=== PATIENT | female | born 1970 | race African-American/Black ===

== ENCOUNTER 2020-09-29 22:07 | Emergency (ER) | payer MEDICAID, OTHER ==
[~2020-09-29] VITALS: Ht 165.1 cm; Wt 76.7 kg
[~2020-09-29 22:07] MED LIST: FERR-252 PO
[2020-09-29 22:19] VITALS: BP 150/99
--- NOTE | 2020-09-29 22:19 | NUR ---
to bed ambulatory
--- NOTE | 2020-09-29 23:26 | NUR ---
Dr. Nicholas examining patient.
[2020-09-29] MEDS ORDERED: IBUP-1801 PO (23:58)
[2020-09-30] MEDS ORDERED: DICL20GE TP
[2020-09-30] MEDS ORDERED: KETOROLAC 60 MG/2 ML VIAL IM ONE
--- NOTE | 2020-09-30 00:02 | NUR ---
ALBIN WRAPS PLACED ON BILATERAL KNEES. +CSM
[2020-09-30 00:12] VITALS: BP 150/99
--- NOTE | 2020-09-30 00:13 | NUR ---
Patient discharged with v/s stable. Written and verbal after care instructions given and explained. Patient alert, oriented and verbalized understanding of instructions. Ambulatory with steady gait. All questions addressed prior to discharge. ID band removed. Patient advised to follow up with PMD. Rx of Ibuprofen & Voltaren given. Patient educated on indication of medication including possible reaction and side effects. Opportunity to ask questions provided and answered.
== END 2020-09-30 00:13 | disposition home or self-care (01) ==
LOC: MED 22:07
DX: M25.561 Pain in right knee (principal); M25.562 Pain in left knee; Z79.899 Other long term (current) drug therapy
CPT/HCPCS: 96372; 99283; J1885

== ENCOUNTER 2021-07-26 18:56 | Emergency (ER) | payer MEDICAID ==
[~2021-07-26] VITALS: Ht 165.1 cm; Wt 72.6 kg
[~2021-07-26 18:56] MED LIST changes: +DICL20GE TP; +IBUP-1801 PO
[2021-07-26 19:14] VITALS: BP 147/106
[2021-07-26] MEDS ORDERED: CODE5SYR5 PO (19:40)
[2021-07-26 20:12] VITALS: BP 147/106
--- NOTE | 2021-07-26 20:12 | NUR ---
Patient discharged with v/s stable. Written and verbal after care instructions ABOUT COUGH given and explained. Patient alert, oriented and verbalized understanding of instructions. Ambulatory with steady gait. All questions addressed prior to discharge. ID band removed. Patient advised to follow up with PMD. Rx of PROMETHZAINE-CODEINE given. Patient educated on indication of medication including possible reaction and side effects. Opportunity to ask questions provided and answered.
--- NOTE | 2021-07-26 20:12 | NUR ---
NO NURSING INTERVENTIONS PROVIDED
== END 2021-07-26 20:12 | disposition home or self-care (01) ==
LOC: MED 18:56
DX: D68.62 Lupus anticoagulant syndrome (principal); R05.9 Cough, unspecified; I10 Essential (primary) hypertension; Z79.899 Other long term (current) drug therapy
CPT/HCPCS: 99283

== ENCOUNTER 2021-11-28 02:05 | Emergency (ER) | payer MEDICAID ==
[~2021-11-28] VITALS: Ht 165.1 cm; Wt 74.8 kg
[~2021-11-28 02:05] MED LIST changes: +CODE5SYR5 PO
[2021-11-28 02:20] VITALS: BP 122/90
--- NOTE | 2021-11-28 02:30 | NUR ---
Patient taken to bed 2 via wheel chair.
--- NOTE | 2021-11-28 02:45 | NUR ---
C/O wound check x today. Patient reported, had right foot surgery on 11/08/21, Patient needs wound check right foot. PMHx: HTN
[2021-11-28] MEDS ORDERED: CEPH500C16 PO (02:53)
[2021-11-28] MEDS ORDERED: NAPR-54 PO (02:55)
[2021-11-28 03:00] VITALS: BP 122/90
--- NOTE | 2021-11-28 03:00 | NUR ---
Patient discharged with v/s stable. Written and verbal after care instructions given and explained. Patient alert, oriented and verbalized understanding of instructions. Ambulatory with steady gait. All questions addressed prior to discharge. ID band removed. Patient advised to follow up with PMD. Rx of KEFLEX, & NAPROSYN given. Patient educated on indication of medication including possible reaction and side effects. Opportunity to ask questions provided and answered.
== END 2021-11-28 03:00 | disposition home or self-care (01) ==
LOC: MED 02:05
DX: L03.115 Cellulitis of right lower limb (principal); Z48.02 Encounter for removal of sutures; I10 Essential (primary) hypertension; F17.210 Nicotine dependence, cigarettes, uncomplicated; Z98.890 Other specified postprocedural states; Z79.1 Long term (current) use of non-steroidal anti-inflammatories (NSAID); Z79.2 Long term (current) use of antibiotics; Z79.899 Other long term (current) drug therapy
CPT/HCPCS: 99283

== ENCOUNTER 2023-06-30 13:25 | Emergency (ER) | payer MEDICAID ==
[~2023-06-30] VITALS: Ht 167.6 cm; Wt 72.6 kg
[~2023-06-30 13:25] MED LIST changes: +CEPH500C16 PO; +NAPR-54 PO
[2023-06-30 13:41] VITALS: BP 159/104; PULSE 67; RESP 18; TEMP 98.7; O2SAT 98
[2023-06-30] MEDS ORDERED: hydrALAZINE 20 MG/ML VIAL IM ONE (15:05)
[2023-06-30] MEDS ORDERED: KETOROLAC 30 MG/ML VIAL IM ONE (15:05)
[2023-06-30] MEDS ORDERED: PROCHLORPERAZINE 10 MG/2 ML VIAL IM ONE (15:05)
[2023-06-30] MEDS ORDERED: IBUP-2213 PO (19:06)
[2023-06-30 20:00] VITALS: BP 159/104; PULSE 67; RESP 18; TEMP 98.7; O2SAT 98
== END 2023-06-30 20:00 | disposition left against medical advice (07) ==
LOC: MED 13:25
DX: I10 Essential (primary) hypertension (principal); R51.9 Headache, unspecified; Z79.899 Other long term (current) drug therapy
CPT/HCPCS: 93005; 96372; 99284; J0360; J0780; J1885; Q0163

== ENCOUNTER 2023-07-13 18:13 | Emergency (ER) | payer MEDICAID ==
[~2023-07-13] VITALS: Ht 167.6 cm; Wt 74.8 kg
[~2023-07-13 18:13] MED LIST changes: +IBUP-2213 PO
[2023-07-13 18:21] VITALS: BP 135/91; PULSE 98; RESP 14; TEMP 97.9; O2SAT 99
[2023-07-13] MEDS ORDERED: FAMO-92 PO ×2 (18:56→19:09)
[2023-07-13] MEDS ORDERED: METH4TAB1 PO ×2 (18:56→19:09)
[2023-07-13] MEDS ORDERED: DIPH25TA53 PO ×2 (18:56→19:09)
[2023-07-13] MEDS ORDERED: CETI10SG1 PO ×2 (18:56→19:09)
== END 2023-07-13 19:09 | disposition home or self-care (01) ==
LOC: MED 18:13
DX: L50.9 Urticaria, unspecified (principal); I10 Essential (primary) hypertension; Z79.899 Other long term (current) drug therapy; Z79.1 Long term (current) use of non-steroidal anti-inflammatories (NSAID); Z79.2 Long term (current) use of antibiotics
CPT/HCPCS: 99283